=== PATIENT | female | born 1985 | race Caucasian/White ===

== ENCOUNTER 2016-04-24 12:09 | Emergency (ER) | payer OTHER ==
[~2016-04-24] VITALS: Ht 167.6 cm; Wt 147.0 kg
[2016-04-24 12:11] VITALS: BP 157/93; PULSE 116; RESP 24; TEMP 98; O2SAT 94
[2016-04-24 12:28] VITALS: BP 157/93; PULSE 116; RESP 24; TEMP 98; O2SAT 94
[2016-04-24] MEDS ORDERED: RESP: ALBUTEROL 2.5 MG/IPRATROPIUM 0.5 MG NEB (SCH) NEB ONE ×2 (12:30→14:30)
[2016-04-24] MEDS ORDERED: RESP: LIDOCAINE HCL 4% PF 5 ML NEB NEB ONE (12:30)
[2016-04-24] MEDS ORDERED: ACETAMINOPHEN 325 MG TAB PO ONE (12:30)
--- NOTE | 2016-04-24 12:35 | PD ---
HPI Chief Complaint: Cold / Flu Symptoms Time Seen by Provider: 12:22 Travel History International Travel<30 days: No Contact w/Intl Traveler<30days: No Traveled to known affect area: No History of Present Illness HPI The patient is a 30-year-old female who presents emergency department for cough. The patient states her symptoms started last night with nasal congestion, however, now notes its moved into the lungs. Patient complains of a productive cough producing brown sputum with intermittent chills and sweats. The patient also complains of subjective fevers. The patient does complain of shoulder pain and back pain secondary to coughing, however, denies any diffuse myalgias. The patient denies any nausea, vomiting, diarrhea, or abdominal pain. The patient has a history of irregular menstrual cycles and cyst on her ovaries, however, denies any known history of PE CT last. The patient denies any history of tobacco use, bronchitis, or pneumonia. PFSH Past Medical History Medical History: Denies Significant Hx Tetanus Vaccination: > 5 Years Influenza Vaccination: Yes ?: Unknown LMP: infrequent Past Surgical History Narrative Surgical Knee surgery Social History Alcohol Use: Yes (RARELY) Tobacco Use: No Substance Use: No Allergies-Medications (Allergen,Severity, Reaction): Coded Allergies: No Known Allergies (Unverified , 04/24/16) Reported Meds & Prescriptions Reported Meds & Active Scripts Active No Active Prescriptions or Reported Medications Review of Systems Except as stated in HPI: all other systems reviewed are Neg General / Constitutional: Positive: Fever, Chills HENT: Positive: Sore Throat (secondary to coughing), Congestion Cardiovascular: No: Chest Pain or Discomfort Respiratory: Positive: Cough, Wheezing Gastrointestinal: No: Nausea, Vomiting, Diarrhea, Abdominal Pain Musculoskeletal: Positive: Pain (shoulder pain and back pain secondary to coughing), No: Myalgias Physical Exam Narrative GENERAL: Awake, alert, pleasant 30-year-old female who appears her stated age and is in no acute respiratory distress. SKIN: Warm and dry. HEAD: Atraumatic. Normocephalic. EYES: Pupils equal and round. No scleral icterus. No injection or drainage. ENT: No nasal bleeding or discharge. Mucous membranes pink and moist. NECK: Trachea midline. No JVD. CARDIOVASCULAR: Regular, tachycardic with a heart rate of 105. RESPIRATORY: No accessory muscle use. Diminished breath sounds with intermittent wheezes. MUSCULOSKELETAL: No obvious deformities. No clubbing. No cyanosis. No edema. NEUROLOGICAL: Awake and alert. No obvious cranial nerve deficits. Motor grossly within normal limits. Normal speech. PSYCHIATRIC: Appropriate mood and affect; insight and judgment normal. Data Data Last Documented VS Vital Signs Date Time Temp Pulse Resp B/P Pulse Ox O2 Delivery O2 Flow Rate FiO2 04/24/16 12:28 98.0 116 24 157/93 94 Room Air Orders Albuterol-Ipratropium Neb (Duoneb Neb) (04/24/16 12:30) Lidocaine Pf 4% Neb (Lidocaine Pf 4% Neb (04/24/16 12:30) Acetaminophen (Tylenol) (04/24/16 12:30) Chest, Single Ap (04/24/16 ) Influenzae A/B Antigen (04/24/16 12:30) Prednisone (Deltasone) (04/24/16 12:45) Albuterol-Ipratropium Neb (Duoneb Neb) (04/24/16 14:30) MDM Medical Decision Making Medical Screen Exam Complete: Yes Emergency Medical Condition: Yes Medical Record Reviewed: Yes Interpretation(s) Last Impressions Chest X-Ray 04/24/16 0000 Draft Impressions: Service Date/Time: April 12:42 - CONCLUSION: 1. Discoid atelectasis and/or scarring within the right mid to lower lung field. Gulshan Mosquera MD Date/Time Procedure Status Source Growth 04/24/16 12:35 Influenza Types A,B Antigen (JERRI) - Final Complete Nasal Aspirate NEGATIVE FOR FLU A AND B ANTIGEN.... Differential Diagnosis Differential diagnosis includes pneumonia, bronchitis, influenza, viral syndrome , URI, congestive heart failure, cardiomyopathy, pulmonary embolism. Narrative Course Influenza screen was sent to lab. Chest x-ray was obtained. The patient was administered DuoNeb's 2 with respiratory lidocaine. Chest x-rays negative. Influenza screen is negative. The patient's symptoms appeared to have improved , however, she requested another DuoNeb. Therefore, another DuoNeb was ordered. The patient will be discharged home on steroids, albuterol inhaler, cough medicine, and will be advised to follow-up with her primary physician. Return if symptoms worsen or progress. Diagnosis Primary Impression: Bronchitis Patient Instructions: General Instructions Additional Instructions: Medications as directed. Return if symptoms worsen or progress. Work excuse for 3 days. Med/Other Pt SpecificInfo: Prescription(s) given Scripts Guaifenesin-Codeine Liq 100-10 Mg/5 Ml Soln10 Ml PO Q6H PRN (COUGH) #1 BOTTLE Ref 0 Prov:Judah Monsalve MD 04/24/16 Albuterol 18 GM Inh (Ventolin Hfa 18 GM Inh)90 Mcg/Act Aer2 Puff INH Q4H PRN ( SHORTNESS OF BREATH) #1 INHALER Ref 0 Prov:Judah Monsalve MD 04/24/16 Prednisone (Deltasone)20 Mg Tab40 Mg PO DAILY 4 Days Ref 0 Prov:Judah Monsalve MD 04/24/16 Disposition: 01 DISCHARGE HOME Condition: Stable Judah Monsalve MD Apr 24, 2016 12:34
[2016-04-24] MEDS ORDERED: predniSONE 20 MG TAB PO ONE (12:45)
--- NOTE | 2016-04-24 13:19 | RADRPT ---
EXAM DATE/TIME: 04/24/2016 12:42 [facility] COMPARISON: No previous studies available for comparison. INDICATIONS: Chest pains with a cough. MEDICAL HISTORY: None. SURGICAL HISTORY: None. ENCOUNTER: Initial ACUITY: 1 week PAIN SCORE: 7/10 LOCATION: Bilateral chest FINDINGS: Discoid atelectasis and/or scarring is noted within the right mid to lower lung field. The heart and mediastinal structures are normal. The pulmonary vascular pattern is normal. The lungs are clear. CONCLUSION: 1. Discoid atelectasis and/or scarring within the right mid to lower lung field. Gulshan Mosquera MD on April 24, 2016 at 13:10 Board Certified Radiologist. This report was verified electronically.
[2016-04-24] MEDS ORDERED: VENTAER INH (14:24)
[2016-04-24] MEDS ORDERED: GUAI100S5 PO (14:24)
[2016-04-24] MEDS ORDERED: PRED-503 PO (14:24)
[2016-04-24 16:06] VITALS: BP 148/89
== END 2016-04-24 16:07 | disposition home or self-care (01) ==
LOC: NEPA 12:09
DX: J40 Bronchitis, not specified as acute or chronic (principal)
CPT/HCPCS: 71010; 87804; 94640; 94664; 99283; J7512

== ENCOUNTER 2016-06-11 13:12 | Emergency (ER) | payer OTHER ==
[~2016-06-11] VITALS: Ht 167.6 cm; Wt 150.0 kg
[~2016-06-11 13:12] MED LIST: GUAI100S5 PO; PRED-503 PO; VENTAER INH
[2016-06-11 13:14] VITALS: BP 137/87; PULSE 105; RESP 18; TEMP 97.2; O2SAT 95
--- NOTE | 2016-06-11 13:55 | PD ---
HPI Chief Complaint: Abdominal Pain Time Seen by Provider: 13:55 Travel History International Travel<30 days: No Contact w/Intl Traveler<30days: No Traveled to known affect area: No History of Present Illness HPI 31-year-old female with no significant medical history presents to emergency department for evaluation of abdominal pain worsening over the last week. Patient states that it is in the epigastrium and standing around. She states that her abdominal girth has increased and she feels as though she has lump on the lateral aspects of her abdomen. She has had normal bowel movements and voids. Nausea and an indigestion feeling without vomiting. Pain radiates to the back with palpation of the abdomen otherwise the pain is just there. Denies any fever or chills. No diarrhea. Last menstrual cycle was spotting in May but states her menstrual cycle is irregular. Possibility of but took a negative urine test at home. Denies any vaginal discharge or bleeding. No other symptoms at this time. PFSH Past Medical History Medical History: Denies Significant Hx ?: Not LMP: MAY 2016 Social History Alcohol Use: Yes (RARELY) Tobacco Use: No Substance Use: No Allergies-Medications (Allergen,Severity, Reaction): Coded Allergies: No Known Allergies (Unverified , 06/11/16) Reported Meds & Prescriptions Reported Meds & Active Scripts Active Pantoprazole (Pantoprazole Sodium) 40 Mg Tab 40 Mg PO DAILY 14 Days Review of Systems Except as stated in HPI: all other systems reviewed are Neg Physical Exam Narrative GENERAL: Well-nourished female patient, in no acute distress SKIN: Warm and dry. HEAD: Atraumatic. Normocephalic. EYES: Pupils equal and round. No scleral icterus. No injection or drainage. ENT: No nasal bleeding or discharge. Mucous membranes pink and moist. NECK: Trachea midline. No JVD. CARDIOVASCULAR: Regular rate and rhythm. No murmur appreciated. RESPIRATORY: No accessory muscle use. Clear to auscultation. Breath sounds equal bilaterally. GASTROINTESTINAL: Abdomen soft, nondistended. Epigastrium discomfort with palpation. Hepatic and splenic margins not palpable. MUSCULOSKELETAL: No obvious deformities. No clubbing. No cyanosis. No edema. NEUROLOGICAL: Awake and alert. No obvious cranial nerve deficits. Motor grossly within normal limits. Normal speech. PSYCHIATRIC: Appropriate mood and affect; insight and judgment normal. Data Data Last Documented VS Vital Signs Date Time Temp Pulse Resp B/P Pulse Ox O2 Delivery O2 Flow Rate FiO2 06/11/16 14:57 91 17 147/87 97 Room Air 06/11/16 13:14 97.2 Orders Complete Blood Count With Diff (06/11/16 13:54) Comprehensive Metabolic Panel (06/11/16 13:54) Lipase (06/11/16 13:54) Prothrombin Time / Inr (Pt) (06/11/16 13:54) Act Partial Throm Time (Ptt) (06/11/16 13:54) Urinalysis - C+S If Indicated (06/11/16 13:54) Ed Urine Pregnancytest Poc (06/11/16 13:54) Iv Access Insert/Monitor (06/11/16 14:56) Famotidine Inj (Pepcid Inj) (06/11/16 15:00) Al-Mag Hy-Si 40-40-4 Mg/Ml Liq (Mag-Al P (06/11/16 15:00) Lidocaine 2% Viscous (Xylocaine 2% Visco (06/11/16 15:00) Chest, Single Ap (06/11/16 ) Abdomen, Kub Only (06/11/16 ) Labs Laboratory Tests Test 06/11/16 06/11/16 14:15 14:25 White Blood Count 8.5 TH/MM3 Red Blood Count 4.95 MIL/MM3 Hemoglobin 13.5 GM/DL Hematocrit 39.8 % Mean Corpuscular Volume 80.4 FL Mean Corpuscular Hemoglobin 27.2 PG Mean Corpuscular Hemoglobin 33.8 % Concent Red Cell Distribution Width 15.3 % Platelet Count 225 TH/MM3 Mean Platelet Volume 8.7 FL Neutrophils (%) (Auto) 66.9 % Lymphocytes (%) (Auto) 23.5 % Monocytes (%) (Auto) 6.6 % Eosinophils (%) (Auto) 2.1 % Basophils (%) (Auto) 0.9 % Neutrophils # (Auto) 5.7 TH/MM3 Lymphocytes # (Auto) 2.0 TH/MM3 Monocytes # (Auto) 0.6 TH/MM3 Eosinophils # (Auto) 0.2 TH/MM3 Basophils # (Auto) 0.1 TH/MM3 CBC Comment DIFF FINAL Differential Comment Prothrombin Time 10.3 SEC Prothromb Time International 0.9 RATIO Ratio Activated Partial 27.2 SEC Thromboplast Time Sodium Level 142 MEQ/L Potassium Level 4.1 MEQ/L Chloride Level 106 MEQ/L Carbon Dioxide Level 25.0 MEQ/L Anion Gap 11 MEQ/L Blood Urea Nitrogen 10 MG/DL Creatinine 0.69 MG/DL Estimat Glomerular Filtration 99 ML/MIN Rate Random Glucose 94 MG/DL Calcium Level 9.2 MG/DL Total Bilirubin 0.6 MG/DL Aspartate Amino Transf 136 U/L (AST/SGOT) Alanine Aminotransferase 123 U/L (ALT/SGPT) Alkaline Phosphatase 74 U/L Total Protein 7.9 GM/DL Albumin 3.8 GM/DL Lipase 160 U/L Urine Color YELLOW Urine Turbidity HAZY Urine pH 5.0 Urine Specific [place] 1.023 Urine Protein NEG mg/dL Urine Glucose (UA) 150 mg/dL Urine Ketones NEG mg/dL Urine Occult Blood NEG Urine Nitrite NEG Urine Bilirubin NEG Urine Urobilinogen LESS THAN 2.0 MG/DL Urine Leukocyte Esterase NEG Urine RBC 1 /hpf Urine WBC 2 /hpf Urine Squamous Epithelial 4 /hpf Cells Urine Mucus FEW /lpf Microscopic Urinalysis Comment CULT NOT INDICATED MDM Medical Decision Making Medical Screen Exam Complete: Yes Emergency Medical Condition: Yes Medical Record Reviewed: Yes Differential Diagnosis GERD versus pancreatitis versus cholelithiasis versus cholecystitis versus constipation versus hernia Narrative Course 31-year-old female presents to emergency department for evaluation. She appears overall well and without distress. Workup was initiated in triage. Once a medical bed becomes available, patient will be transferred and care assumed by that provider. Scripts Pantoprazole 40 Mg Tab40 Mg PO DAILY 14 Days Ref 0 Prov:Nava Li 06/11/16 Condition: Stable Jyothi Francisco Jun 11, 2016 13:55
[2016-06-11 14:41] LABS: AUTOMATED NEUTROPHIL # 5.7 TH/MM3 (1.8-7.7); BASOPHIL # 0.1 TH/MM3 (0-0.2); BASOPHIL % 0.9 % (0.0-2.0); EOSINOPHIL # 0.2 TH/MM3 (0-0.4); EOSINOPHIL % 2.1 % (0.0-4.0); HEMATOCRIT 39.8 % (35.0-46.0); HEMO FLAGS DIFF FINAL; LYMPH % 23.5 % (9.0-44.0); MEAN CELL VOLUME 80.4 FL (80.0-100.0); MEAN CORPUSCULAR HEMOGLOBIN 27.2 PG (27.0-34.0); MEAN CORPUSCULAR HGB CONC 33.8 % (32.0-36.0); MONO % 6.6 % (0.0-8.0); NEUT % 66.9 % (16.0-70.0); PLATELET COUNT 225 TH/MM3 (150-450); RED BLOOD COUNT 4.95 MIL/MM3 (4.00-5.30); RED CELL DISTRIBUTION WIDTH 15.3 % (11.6-17.2); WHITE BLOOD COUNT 8.5 TH/MM3 (4.0-11.0)
[2016-06-11 14:49] LABS: APTT (PATIENT) 27.2 SEC (24.3-30.1); INTERNATIONAL NORMALIZED RATIO 0.9 RATIO; PROTHROMBIN TIME - PATIENT 10.3 SEC (9.8-11.6)
[2016-06-11 14:56] LABS: BLOOD, URINE NEG (NEG); GLUCOSE,URINE 150 mg/dL (NEG); KETONE, URINE NEG (NEG); MUCUS URINE FEW /lpf (OCC); NITRITE,URINE NEG (NEG); SQUAMOUS EPITHELIAL CELL URINE 4 /hpf (0-5); URINE COLOR YELLOW (YELLW/STRAW)
[2016-06-11 14:57] VITALS: BP 147/87; PULSE 91; RESP 17; O2SAT 97
[2016-06-11 14:58] LABS: COMMENT (UR) CULT NOT INDICATED; CULTURE IF INDICATED CULT NOT INDICATED
[2016-06-11] MEDS ORDERED: ALUMINUM/MAGNESIUM/SIMETH 30 ML CUP PO ONE (15:00)
[2016-06-11] MEDS ORDERED: LIDOCAINE VISCOUS 2% SOLN 15 ML UDC PO ONE (15:00)
[2016-06-11] MEDS ORDERED: FAMOTIDINE 20 MG/2 ML VIAL IV PUSH ONE (15:00)
--- NOTE | 2016-06-11 15:05 | PD ---
Physical Exam Date Seen by Provider: Jun 11, 2016 Narrative For full history and physical examination please see previous provider's note. I assumed care of this patient when she was transferred to the medical bed. Patient reports to me that for the last 10 days she's had bloating in her upper abdomen feels uncomfortable not necessarily painful. She reports indigestion and acid reflux, she's been taking probiotics for this with no relief of her symptoms. She denies any nausea, vomiting, fever, chills, chest pain, shortness of breath, diarrhea. She denies any history of the same. Data Data Last Documented VS Vital Signs Date Time Temp Pulse Resp B/P Pulse Ox O2 Delivery O2 Flow Rate FiO2 06/11/16 14:57 91 17 147/87 97 Room Air 06/11/16 13:14 97.2 Orders Complete Blood Count With Diff (06/11/16 13:54) Comprehensive Metabolic Panel (06/11/16 13:54) Lipase (06/11/16 13:54) Prothrombin Time / Inr (Pt) (06/11/16 13:54) Act Partial Throm Time (Ptt) (06/11/16 13:54) Urinalysis - C+S If Indicated (06/11/16 13:54) Ed Urine Pregnancytest Poc (06/11/16 13:54) Iv Access Insert/Monitor (06/11/16 14:56) Famotidine Inj (Pepcid Inj) (06/11/16 15:00) Al-Mag Hy-Si 40-40-4 Mg/Ml Liq (Mag-Al P (06/11/16 15:00) Lidocaine 2% Viscous (Xylocaine 2% Visco (06/11/16 15:00) Chest, Single Ap (06/11/16 ) Abdomen, Kub Only (06/11/16 ) Labs Laboratory Tests Test 06/11/16 06/11/16 14:15 14:25 White Blood Count 8.5 TH/MM3 Red Blood Count 4.95 MIL/MM3 Hemoglobin 13.5 GM/DL Hematocrit 39.8 % Mean Corpuscular Volume 80.4 FL Mean Corpuscular Hemoglobin 27.2 PG Mean Corpuscular Hemoglobin 33.8 % Concent Red Cell Distribution Width 15.3 % Platelet Count 225 TH/MM3 Mean Platelet Volume 8.7 FL Neutrophils (%) (Auto) 66.9 % Lymphocytes (%) (Auto) 23.5 % Monocytes (%) (Auto) 6.6 % Eosinophils (%) (Auto) 2.1 % Basophils (%) (Auto) 0.9 % Neutrophils # (Auto) 5.7 TH/MM3 Lymphocytes # (Auto) 2.0 TH/MM3 Monocytes # (Auto) 0.6 TH/MM3 Eosinophils # (Auto) 0.2 TH/MM3 Basophils # (Auto) 0.1 TH/MM3 CBC Comment DIFF FINAL Differential Comment Prothrombin Time 10.3 SEC Prothromb Time International 0.9 RATIO Ratio Activated Partial 27.2 SEC Thromboplast Time Sodium Level 142 MEQ/L Potassium Level 4.1 MEQ/L Chloride Level 106 MEQ/L Carbon Dioxide Level 25.0 MEQ/L Anion Gap 11 MEQ/L Blood Urea Nitrogen 10 MG/DL Creatinine 0.69 MG/DL Estimat Glomerular Filtration 99 ML/MIN Rate Random Glucose 94 MG/DL Calcium Level 9.2 MG/DL Total Bilirubin 0.6 MG/DL Aspartate Amino Transf 136 U/L (AST/SGOT) Alanine Aminotransferase 123 U/L (ALT/SGPT) Alkaline Phosphatase 74 U/L Total Protein 7.9 GM/DL Albumin 3.8 GM/DL Lipase 160 U/L Urine Color YELLOW Urine Turbidity HAZY Urine pH 5.0 Urine Specific [place] 1.023 Urine Protein NEG mg/dL Urine Glucose (UA) 150 mg/dL Urine Ketones NEG mg/dL Urine Occult Blood NEG Urine Nitrite NEG Urine Bilirubin NEG Urine Urobilinogen LESS THAN 2.0 MG/DL Urine Leukocyte Esterase NEG Urine RBC 1 /hpf Urine WBC 2 /hpf Urine Squamous Epithelial 4 /hpf Cells Urine Mucus FEW /lpf Microscopic Urinalysis Comment CULT NOT INDICATED [facility] Medical Record Reviewed: Yes Supervised Visit with MARK: No Interpretation(s) Vital Signs Date Time Temp Pulse Resp B/P Pulse Ox O2 Delivery O2 Flow Rate FiO2 06/11/16 14:57 91 17 147/87 97 Room Air 06/11/16 13:14 97.2 105 18 137/87 95 Room Air Differential Diagnosis Gastritis versus obstruction versus peptic ulcer disease versus constipation versus other Narrative Course Patient is a 31-year-old female presenting to emergency department for evaluation of abdominal bloating, indigestion, reflux for the last 10 days. Abdominal exam is benign, there is no tenderness or guarding. Patient had bronchitis in April but continues to have an occasional cough which could be contributing to the pain that she states she has under her ribs bilaterally. We 'll obtain a chest x-ray as well as a KUB. Labs were drawn in triage and are pending. CBC is unremarkable Chemistry shows mild transaminitis, likely secondary to fatty liver disease. Patient denies any excessive use of acetaminophen, and no excessive alcohol intake or consistent use of alcohol. Urinalysis unremarkable Vital signs remained stable Chest x-ray and KUB are negative. Patient given GI cocktail and Pepcid in the emergency department. Discussed findings of labs and imaging with patient. She is encouraged follow- up with her primary doctor. She was further encouraged to maintain a bland diet , take medications as directed. She was encouraged return to emergency department for any new or worsening symptoms. Patient stable for discharge. Diagnosis Primary Impression: Bloated abdomen Additional Impression: Indigestion Referrals: Primary Care Physician Patient Instructions: Gas and Bloating (ED), General Instructions Additional Instruction: Follow-up with her primary care provider Take medications as directed Avoid fried, spicy, fatty foods Return to emergency department for any new or worsening symptoms Med/Other Pt SpecificInfo: Prescription(s) given Scripts Pantoprazole 40 Mg Tab40 Mg PO DAILY 14 Days Ref 0 Prov:Nava Li 06/11/16 Disposition: 01 DISCHARGE HOME Condition: Stable Nava Li Jun 11, 2016 15:05
[2016-06-11 15:11] LABS: ALT (GPT) 123 U/L (10-53); ANION GAP 11 MEQ/L (5-15); AST (GOT) 136 U/L (15-37); BLOOD UREA NITROGEN 10 MG/DL (7-18); CHLORIDE 106 MEQ/L (98-107); GLOMERULAR FILTRATION RATE 99 ML/MIN (>89); POTASSIUM 4.1 MEQ/L (3.5-5.1); SODIUM (NA) 142 MEQ/L (136-145)
[2016-06-11 15:13] LABS: ALKALINE PHOSPHATASE 74 U/L (45-117); TOTAL BILIRUBIN ADULT 0.6 MG/DL (0.2-1.0)
--- NOTE | 2016-06-11 15:37 | RADRPT ---
EXAM DATE/TIME: 06/11/2016 15:23 [facility] COMPARISON: No previous studies available for comparison. INDICATIONS : Abdominal pain and distention. MEDICAL HISTORY : None. SURGICAL HISTORY : None. ENCOUNTER: Initial ACUITY: 1 week PAIN SCORE: 7/10 LOCATION: Bilateral abdomen. FINDINGS: Supine view of the abdomen was performed. The abdominal bowel gas pattern is normal. No abnormal ma sses, calcifications, or organomegaly is seen. The osseous structures are unremarkable. CONCLUSION: No acute disease. Tyron Alvarado MD on June 11, 2016 at 15:35 Board Certified Radiologist. This report was verified electronically.
--- NOTE | 2016-06-11 15:37 | RADRPT ---
EXAM DATE/TIME: 06/11/2016 15:19 [facility] COMPARISON: CHEST SINGLE AP, April 24, 2016, 12:42. INDICATIONS : Cough, rib discomfort. MEDICAL HISTORY : None. SURGICAL HISTORY : None. ENCOUNTER: Initial ACUITY: 1 month PAIN SCORE: 1/10 LOCATION: Bilateral chest FINDINGS: A single view of the chest demonstrates the lungs to be symmetrically aerated without evidence of mas s, infiltrate or effusion. The cardiomediastinal contours are unremarkable. Osseous structures are intact. CONCLUSION: No acute disease. Lj Vaughan MD FACR on June 11, 2016 at 15:35 Board Certified Radiologist. This report was verified electronically.
[2016-06-11] MEDS ORDERED: PANT40TA3 PO (15:48)
[2016-06-11 16:28] VITALS: BP 145/88
== END 2016-06-11 16:28 | disposition home or self-care (01) ==
LOC: NEPE 13:12
DX: R14.0 Abdominal distension (gaseous) (principal); K30 Functional dyspepsia; R11.0 Nausea; K21.9 Gastro-esophageal reflux disease without esophagitis; R74.0 Nonspecific elevation of levels of transaminase and lactic acid dehydrogenase [LDH]
CPT/HCPCS: 71010; 74000; 80053; 81001; 83690; 84703; 85025; 85610; 85730; 96374